=== PATIENT | female | born 1945 | race Caucasian/White ===

== ENCOUNTER 2023-02-06 08:44 | Outpatient (CLI) | payer OTHER, SELFPAY ==
--- NOTE | 2023-02-06 09:00 | CRLHL7_ITS ---
For Patients: As a result of the Century Cures Act, medical imaging exams and procedure reports are released immediately into your electronic medical record. You may view this report before your referring provider. If you have questions, please contact your health care provider. Indication: Lung nodule Technique: Noncontrast CT chest Please note that all CT scans at this facility use dose modulation, iterative reconstruction, and/or weight-based dosing when appropriate to reduce radiation dose to as low as reasonably achievable. Comparison: Chest x-ray 01/29/2023 Findings: Pacer wires are present with left-sided pacer device. Normal axillary lymph nodes. Breast tissue appears normal. No thyroid lesion. Incidental pericardial recess. No enlarged mediastinal or hilar lymph nodes. Atherosclerotic changes. Nonobstructing stone in the upper pole of the left kidney measuring 4.5 millimeters. Additional stone or hyperdense cyst upper pole left kidney measuring 6.1 cm. The gallbladder is nondistended and contains numerous stones. No biliary obstruction. No splenomegaly. No upper abdominal adenopathy. No fracture is present. No intrinsic osseous lesion. A 5.4 millimeter nodule is present within the left lower lobe, series 3, image 81. Mild dependent areas of scarring are noted bilaterally. Impression: 5.4 millimeter left lower lobe pulmonary nodule. Optional follow-up in 1 year could be considered. Left nephrolithiasis. Cholelithiasis. Please note that all CT scans at this facility use dose modulation, iterative reconstruction, and/or weight-based dosing when appropriate to reduce radiation dose to as low as reasonably achievable. Dictated by Joe Goldstein MD @ 02/06/2023 12:38:39 PM (Electronically Signed)
== END 2023-02-06 08:45 | disposition home or self-care (01) ==
LOC: CT 08:52
PROVIDERS: PCP Internal Medicine; Visit Provider Internal Medicine
DX: R91.1 Solitary pulmonary nodule (principal); R91.8 Other nonspecific abnormal finding of lung field; N20.0 Calculus of kidney; K80.20 Calculus of gallbladder without cholecystitis without obstruction
CPT/HCPCS: 71250

== ENCOUNTER 2024-03-24 07:43 | Outpatient (CLI) | payer OTHER, SELFPAY ==
--- OUTSIDE RECORDS SUMMARY | 2024-03-24 07:46 | XMS_ITS | Continuity of Care Document ---
Author Name [facility] Organization [facility] Care Team Providers Care Type Caster Name Role Phone [facility] Unavailable Unavailable Medications Combined list of outpatient medications from Department of Defense and Veterans Affairs facilities.Medications provided include 1) outpatient medications from the last 15 months, and 2) patient-reported medications. Medication Details Route Status Patient Instructions Prescription Expires Prescription Number Last Dispense Date Ordering Provider Order Date Order Qty Source CYCLOSPORIN E (cyclospori ne), 0.05 %, DROPERETTE, OPHTHALMIC, [employer] 30 ea. VIAL Active [id number] 4 2023 180 Pharmac y Data Transac tion Service Facilit y CYCLOSPORIN E (cyclospori ne), 0.05 %, DROPERETTE, OPHTHALMIC, [employer] 30 ea. VIAL Active [id number] 4 2023 180 Pharmac y Data Transac tion Service Facilit y LISINOPRIL- HYDROCHLORO THIAZIDE (lisinopril /hydrochlor othiazide), 20 MG-25MG, TABLET, ORAL, [employer] [facility], 500 ea. BOTTLE Active [id number] 4 2023 45 Pharmac y Data Transac tion Service Facilit y SOTALOL (SOTALOL HCL), 80MG, TABLET, ORAL, [employer] ELISA, 100 ea. BOTTLE Active [id number] 2022 90 Pharmac y Data Transac tion Service Facilit y SOTALOL (SOTALOL HCL), 80MG, TABLET, ORAL, [employer] ELISA, 100 ea. BOTTLE Active [id number] 2023 90 Pharmac y Data Transac tion Service Facilit y SOTALOL (SOTALOL HCL), 80MG, TABLET, ORAL, [employer]EX ELISA, 100 ea. BOTTLE Active [id number] 2023 90 Pharmac y Data Transac tion Service Facilit y XARELTO (RIVAROXABA N), 15 MG, TABLET, ORAL, [facility] [employer] 90 ea. BOTTLE Active [id number] 3 2022 90 Pharmac y Data Transac tion Service Facilit y XARELTO (RIVAROXABA N), 15 MG, TABLET, ORAL, [employer] 90 ea. BOTTLE Active [id number] 4 2023 90 Pharmac y Data Transac tion Service Facilit y Immunizations Combined list of available immunizations from the Department of Defense and Veterans Affairs facilities. Immunization Series Date Given Administered By Site Reaction Lot Number CVX Code Drug [facility] Status Comments Source COVID-19, mRNA, LNP-S, PF, 100 mcg or 50 mcg dose 2021 GEM WHEELER () Not Given COVID-19, mRNA, LNP-S, PF, 100 mcg or 50 mcg dose DoD Tdap 2020 MARY WHEELER () Not Given Tdap DoD influenza, recombinant, quadrivalent, injectable, preservative free 2019 MARY WHEELER () Not Given influenza , recombina nt, quadrival ent,injec table, preservat chiquita free DoD influenza, recombinant, quadrivalent, injectable, preservative free 2018 BRENDA ACE () Not Given influenza , recombina nt, quadrival ent,injec table, preservat chiquita free DoD Social History Combined list of available smoking, tobacco, and other social history from Department of Defense and Veterans Affairs facilities. Social History Type Response Date Comment [facility] This section is an empty social history section. DoD
--- OUTSIDE RECORDS SUMMARY | 2024-03-24 07:46 | XMS_ITS | Clinical Summary ---
Author Organization [email or web address] Address [place], [place] [address] Care Team Providers Care Eyelet Row Marker Name Role Phone Rogelio Oliva MD Primary Care Provider [phone] Allergies Active Allergy Reactions Criticality Noted Date Comments Atorvastatin Syncope 07/18/2010 Syncope and GI distress Egg Diarrhea 11/17/2019 Fentanyl Shortness Of Breath 11/17/2019 Stopped breathing Meperidine GI Upset 07/18/2010 Nickel Rash,Contact Dermatitis 11/28/2022 Penicillins Rash 07/18/2010 Pravastatin GI Upset 07/18/2010 Silver Rash,Contact Dermatitis 11/28/2022 Medications Medication Sig Dispensed Refills Start Date End Date Status MULTIVITAMIN ORAL Multiple Vitamins oral tablet 07/18/2010 Active cycloSPORINE (RESTASIS) 0.05 % ophthalmic emulsion 07/23/2018 Activ e calcium with vitamin D3 (CALCIUM 500+D) tablet Take 1 tablet by mouth once daily with a meal. 0 03/31/2019 Active Mjlfs-[id number]-EPA-Fish Oil (Fish Oil) 1,000 mg (120 mg-180 mg) capIndications:Mixed hyperlipidemia Take 1 Capsule (1,000 mg) by mouth 2 times daily. 0 03/28/2021 Active vit-min eye [id number] (PreserVision AREDS 2 Plus) capsule Take 1 Capsule by mouth two times daily. 03/16/2024 Active apixaban (ELIQUIS) 5 mg tabletIndications:PA F (paroxysmal atrial fibrillation) (HC) Take 1 Tablet (5 mg) by mouth two times daily. 180 Tablet 3 03/16/2024 Active sotaloL (BETAPACE) 80 mg tabletIndications:At rial flutter, unspecified type (HC) Take 0.5 Tablets (40 mg) by mouth two times daily before meals. 90 Tablet 3 03/16/2024 Active lisinopril-hydrochlo rothiazide, 20-25 mg, (PRINZIDE, ZESTORETIC) 20-25 mg per tabletIndications:Es sential hypertension Take 0.5 Tablets by mouth once daily. 45 Tablet 3 03/16/2024 Active lisinopril-hydrochlo rothiazide, 20-25 mg, (PRINZIDE, ZESTORETIC) 20-25 mg per tabletIndications:Es sential hypertension Take 0.5 Tablets by mouth once daily. 45 Tablet 3 03/26/2023 4 Discontinue d(Reorder (E-cancel not sent)) rivaroxaban (XARELTO) 15 mg tab tabletIndications:Pa roxysmal atrial fibrillation (HC) Take 1 Tablet (15 mg) by mouth once daily with evening meal. 90 Tablet 3 03/26/2023 4 Discontinue d(*Med complete/Re gimen complete/Le aries of care change) sotaloL (BETAPACE) 80 mg tabletIndications:At rial flutter, unspecified type (HC) Take 0.5 Tablets (40 mg) by mouth two times daily before meals. 90 Tablet 3 03/26/2023 4 Discontinue d(Reorder (E-cancel not sent)) famotidine (PEPCID) 20 mg tablet Take 1 Tablet (20 mg) by mouth two times daily. 90 Tablet 02/26/2024 4 Discontinue d(*Medicati on adjustment) predniSONE (DELTASONE) 10 mg tablet Take 4 Tablets (40 mg) by mouth once daily with a meal for 5 days. 20 Tablet 02/26/2024 4 Discontinue d(*Medicati on adjustment) azelastine 137 mcg/actuation (ASTELIN) nasal spray Inhale 2 Sprays into affected nostril(s) two times daily. 30 mL 02/26/2024 4 Discontinue d(*Medicati on adjustment) Active Problems Problem Noted Date Diagnosed Date Depression, recurrent 04/22/2023 PAF (paroxysmal atrial fibrillation) 09/24/2022 Generalized anxiety disorder 09/09/2017 Overview (07/15/2019): With atypical chest pain Hearing loss 09/09/2017 Mixed hyperlipidemia 09/09/2017 Varicose veins of lower extremity 09/09/2017 Essential hypertension 07/18/2010 Overview (07/15/2019): Hypertension ICU 2000 Diabetes mellitus, type 2 07/18/2010 Overview (07/15/2019): Diabetes mellitus type II preceded by hyperglycemia Cholesteatoma of mastoid, left ear Encounters Date Type Department Care Team Description 03/23/2024 Telephone [facility] [place] [address] [facility] [address] [place] [address] Omega Aden MD Results (Device check) 03/20/2024 Telephone [facility] [phone] Evi Simon RN Atrial Fibrillation 03/16/2024 2:30 PM CDT Office Visit [facility] [place] [address] [facility] [address] [place] [id number] Omega Aden MD Follow Up (device check 02/19. Pt states feeling ok, early january she had really bad hives on her legs and stomach but isn't sure what the cause could be - only new med was a mouth rinse. No recent or current cardiac symptoms. if I do too much my pacemaker does get mad with me Needs refills. BP this morning was 115/68 before taking meds. ) 03/16/2024 Travel 02/26/2024 9:30 AM CDT Office Visit [address] [phone] Andree Bowers PA Consult (left mastoid debridement and right ear cleaning); Medication List Update (Taking Areds 2 for eyes) 02/26/2024 Travel 02/24/2024 Orders Only [facility] Scanner 1 scan: (1-Ord) [facility] , 02/24/2024 from Last 3 Months Immunizations Name Administration Dates Next Due COVID-19 vaccine (Moderna 100mcg/0.5mL) PF, MDV 10/19/2020,09/21/2020 COVID-19 vaccine (Pfizer-BioNTech 30mcg/0.3mL) P F, MDV 06/28/2021 Influenza RIV4 (Age 18+ Years) PRESERV FREE 11/2019,05/01/2019 Influenza Virus, Unspecified 05/10/2021 Influenza,CCIIV4 PRESERV FREE 03/14/2023 Pneumococcal Poly,23-Valent (Pneumovax) 09/27/19 06 Pneumococcal conj 13-Valent (Prevnar 13) 015 Td, Preservative Free (age >= 7 Years) 5 Tdap 07/22/2020 Family History Medical History Relation Name Comments Lung cancer Brother 1 Alcoholism Brother 2 Hypertension Brother 2 Heart Disease Father Cancer Mother bile ducts Depression Mother COPD Sister Hypertension Sister Relation Name Status Comments Brother 1 Brother 2 Alive Father Mother Sister Alive Social History Tobacco Use Types Packs/Day Years Used Date Smoking Tobacco: Never Smokeless Tobacco: Never Tobacco Cessation:Counseling Given: Yes Alcohol Use Standard Drinks/Week Comments Yes 0 (1 standard drink = 0.6 oz pur e alcohol) seldom PHQ-2 Answer Date Recorded PHQ-2 TOTAL SCORE 1 04/22/2023 Social Connections Answer Date Recorded Frequency of Communication with Friends and Fami ly Not on file 02/14/2024 Financial Resource Strain Answer Date R ecorded Difficulty of Paying Living Expenses 3 02/05/2023 Difficulty of Paying Living Expenses Not on file 02/05/2023 Food Insecurity Answer Date Recorded Worried About Running Out of Food in the Last Ye ar 1 02/05/2023 Transportation Needs Answer Date Record ed Lack of Transportation (Medical) 1 02/05/2023 Housing Stability Answer Date Recorded Unable to Pay for Housing in the Last Year 3 02/05/2023 Sex and Gender Information Value Date Recorded Sex Assigned at Not on file Gender Identity Not on file Sexual Orientation Not on file Obstetrics History Last Filed Vital Signs Vital Sign Reading Time Taken Comments Blood Pressure 180/94 03/16/2024 2:23 PM CDT Pulse 61 03/16/2024 2:23 PM CDT Temperature 36.9 ??C (98.4 ??F) 02/05/2023 2:36 PM CD T Respiratory Rate 16 02/12/2023 1:17 PM CDT Oxygen Saturation 98% 03/16/2024 2:23 PM CDT Inhaled Oxygen Concentration - - Weight 69.6 kg (153 lb 8 oz) 03/16/2024 2:23 PM CDT Height 162.6 cm (5' 4) 03/16/2024 2:23 PM CDT Body Mass Index 26.35 03/16/2024 2:23 PM CDT Plan of Treatment Upcoming Encounters Date Type Department Care Team (Late st Contact Info) Description 03/24/2024 8:00 AM CDT Ancillary Procedure [facility] [address] [place] [address] 07/14/2024 1:30 PM RAFTSMAN Cardiac Device Check [facility] [address] [place] [address] 09/01/2024 11:30 AM RAFTSMAN Office Visit [facility] [address] [place] [address] Andree Bowers PA [address] [place] [id number] Health Maintenance Due Date Last Done Comments Hepatitis C screening for ag e 18-79 10/09/1963 Zoster (shingles) series for age 50+ (1 of 2) 10/09/1995 Medicare Wellness for age 65+ 2010 Pneumococcal series for age 65+ (3 of 3 - PPSV23 or PCV20) 09/21/2015 09/20/2014, 09/26/2005 RSV vaccine for adults or (1 - 1-dose 75+ series) 2020 COVID-19 vaccine series ( season) 2024 04/11/2023, 02/05/2022, 06/28/2021, Additional history exists Influenza for age 65+ 03/01/2024 03/14/2023 , 05/10/2021, 04/05/2020, Additional history exists Depression screening for age 12+ 04/22/2024 04/22/2023, 07/15/2019, 07/15/2019 BMI (ht and wt on same day) for age 18+ 03/16/2025 03/16/2024, 06/18/2023, 11/27/2022, Additional history exists Tetanus booster 07/22/2030 07/22/2020, 09/29/2004 Fecal testing non-DNA (FIT,FOBT,iFOBT) for age 45-75 Discontinued 04/18/2020 Tdap Completed 07/22/2020 DEXA/DXA scan for age 65+ Completed 07/15/2023 Medical Devices Implanted Type Area Timing Adjuster Device Identifier Shelf Expiration Date Model / Serial / Lot Prosth [place] 3x7mm Adjust Titnm - [id number] Implanted:Qty: 1 on 11/18/2019 by Jose Luis Fontenot MD at [facility] Left: Ear [employer] 06/27/2024 [id number] / / [id number] Procedures Procedure Name Priority Date/Time Associated Diagnosis Comments EKG 12 LEAD Routine 03/16/2024 2:23 PM CDT PAF (paroxysmal atrial fibrillation) (HC) Atrial flutter, unspecified type (HC) SSS (sick sinus syndrome) (HC) SCAN-EYE EXAM 02/24/2024 12:00 AM CDT XR DXA BONE DENSITY 2 SITES AXIAL Routine 07/15/2023 1:28 PM RAFTSMAN Abnormal bone density screening Other specified disorders of bone density and structure, other site OCCULT BLOOD IFOBT STOOL Routine 04/18/2020 12:45 PM CDT Screening for colorectal cancer from Last 3 Months or Most Recently Relevant to Health Maintenance Results * SCAN-EYE EXAM (02/24/2024 12:00 AM CDT) Scanner OTHER * XR DXA BONE DENSITY 2 SITES AXIAL (07/15/2023 1:28 PM RAFTSMAN) Anatomical Region Laterality Modality Spine, HIPS, HIPL, HIPR Computed Radiography Impressions 07/16/2023 3:43 PM RAFTSMAN Osteopenia. ??Risk of fracture is not elevated. RECOMMENDATIONS: The National Osteoporosis Foundation recommends pharmacologic treatment for patients with T-scores of -2.5 or less, patients with prior history of fragility fractures, or patients with 10-year probability of greater than 3% at hips or greater than 20% of suffering major osteoporotic fractures. Recommend continued optimization of calcium and vitamin D intake through dietary means and/or supplementation and regular exercise. Repeat scan recommended in 5 years. ?? Narrative 07/16/2023 3:43 PM RAFTSMAN For Patients: Results are automatically released to your [employer] ([employer]) account once available, in compliance with federal regulations. This means that you may see your results before your provider has had a chance to review them. Please allow 2-3 business days for your provider to comment on the results. XR DXA Bone Mineral Density (BMD) EXAM LOCATION: [address] [phone] PATIENT NAME: Paris Macdonald DATE OF : 1945 EXAM DATE: 07/15/2023 REQUESTING PROVIDER: Rogelio Oliva ?? GENDER AT : female HEIGHT: 5' 4 (06/18/2023) WEIGHT: ??149 lb 1.6 oz (06/18/2023) MENOPAUSAL STATUS: Postmenopausal RACE/ETHNICITY: White RISK FACTORS: ?? None CURRENT MEDICATION FOR BONE LOSS: NONE INDICATION: ?? Postmenopausal COMPARISON DATE(S): None DXA scans are compared to prior studies for a patient only when the two (or more) studies were performed on the same scanner. It is not possible to compare data generated on one scanner to data from another because there are not standards in DXA equipment. This applies even if the two scanners are made by the same computer systems software engineer. PROCEDURE: Dual-energy x-ray absorptiometry performed with routine technique. Reporting is completed in the form of a T-score. The T-score represents the standard deviation from peak bone mass based on young healthy adult. A Z-score is used for diagnosis in premenopausal women, and for men under the age of 50. FINDINGS: RESULT LUMBAR SPINE L1 - L4 BMD: 1.043 g/cm2 T-Score: - 1.1 RESULTS FEMUR Left femoral neck BMD: 0.860 g/cm2 T-Score: - 1.3 Right femoral neck BMD: 0.888 g/cm2 T-Score: - 1.1 Left hip BMD: 0.913 g/cm2 T-Score: - 0.8 Right hip BMD: 0.907 g/cm2 T-Score: - 0.8 WHO criteria: Normal: T-score at or above -1 SD Osteopenia: T-score between -1.1 and -2.4 SD Osteoporosis: T-score at or below -2.5 SD FRAX RISK CALCULATION (USED FOR OSTEOPENIA ONLY): 10-year probability of major osteoporotic fracture: 11.9%. 10-year probability of hip fracture: 2.4%. Rogelio Oliva MD DEXA * OCCULT BLOOD IFOBT STOOL (04/18/2020 12:45 PM CDT) STOOL BLOOD ,IFOBT Negative Negative 04/22/2020 12:15 PM CDT [facility] Stool STOOL SPECIMEN / Unknown Non-Blood / Unknown 04/18/2020 12:45 PM CDT 04/21/2020 12:45 PM CDT Ivone Siddiqi DO LABORATORY [facility] [address] [place] [address], from Last 3 Months or Most Recently Relevant to Health Maintenance Advance Directives Documents on File Type Date Recorded Patient Cripple Worker Expl anation Healthcare Directive 08/26/2023 024 Healthcare Directive 11/18/2019 9:21 AM * Full Code (Latest Code Status on File) Date Activated Date Inactivated Comments 11/18/2019 9:51 AM 11/18/2019 10:30 PM Question Answer Comments Code Status Discussion: Not Discussed Care Teams Eyelet Row Marker Relationship Specialty Start Date End Date Rogelio Oliva MD [address] [facility] [place] [address] PCP - General Family Practice 06/18/23
[2024-03-24] MEDS: SODIUM CHLORIDE 0.9 % (FLUSH) 10 ML SYRINGE IVF (09:51)
[2024-03-24] MEDS: REGADENOSON 0.4 MG/5 ML SYRINGE IVP (09:51)
[2024-03-24 10:37] VITALS: BP 150/72; PULSE 70; RESP 16
--- NOTE | 2024-03-24 11:23 | W.PM.STED ---
Stress Test Note Date Date Seen: 03/24/24 Date of test: 03/24/24 Providers Primary care provider: Rogelio Oliva Stress test physician: Zaid Perry Stress Test Note Stress test ordered: Lexiscan Indication for test: Chest pain Stress test medicine: Lexiscan Results discussion: This Very nice 70-year-old female presents for the above ordered Lexiscan, after discussion the risks benefits side effects she would like to proceed, cardiac stress test medical history form is reviewed. Pretest EKG, shows normal sinus rhythm, with a ventricular rate of 69 blood pressure 162/80. Standard Lexiscan nonwalking protocol is done, total duration of infusion was 5 minutes, metabolic equivalent was 1.6 with a maximum heart rate of 96. No significant ST wave changes occurred, she remained in normal sinus rhythm, she had no specific complaints. Impression: Negative electrographic portion of Lexiscan, subjectively negative Follow up suggested: Await nuclear images, these will be read by nuclear Medicine, clinical correlation with these will be needed. Patient left this testing facility in good condition.
== END 2024-03-24 07:44 | disposition home or self-care (01) ==
PROVIDERS: PCP Family Medicine; Visit Provider Internal Medicine
DX: R07.9 Chest pain, unspecified (principal)
CPT/HCPCS: 78452; 93016; 93017; A9500; J2785